=== PATIENT | male | born 1990 | race African-American/Black ===

== ENCOUNTER 2022-10-16 10:27 | Emergency (ER) | payer SELFPAY ==
[~2022-10-16] VITALS: Ht 167.6 cm; Wt 71.7 kg
[2022-10-16 10:50] VITALS: BP 134/70; TEMP 98; O2SAT 100
[2022-10-16] MEDS ORDERED: ALBU8.5H8 INH (11:04)
[2022-10-16] MEDS ORDERED: PANT40TA2 PO (11:04)
[2022-10-16] MEDS ORDERED: PRED50TA PO (11:04)
== END 2022-10-16 11:10 | disposition home or self-care (01) ==
LOC: ER 10:32
DX: J45.909 Unspecified asthma, uncomplicated (principal); K21.9 Gastro-esophageal reflux disease without esophagitis

== ENCOUNTER 2022-10-29 19:11 | Emergency (ER) | payer SELFPAY ==
[~2022-10-29] VITALS: Ht 167.6 cm; Wt 70.3 kg
[~2022-10-29 19:11] MED LIST: ALBU8.5H8 INH; PANT40TA2 PO; PRED50TA PO
[2022-10-29 21:28] VITALS: BP 138/86; TEMP 98.6; O2SAT 0
[2022-10-29] MEDS ORDERED: MAG HYDROX/AL HYDROX/SIMETH 30 ML UDC PO ONE (22:00)
[2022-10-29] MEDS ORDERED: MAG HYDROX/AL HYDROX/SIMETH 30 ML UDC ONE (22:14)
[2022-10-29] MEDS ORDERED: OMEP40CA21 PO (22:53)
== END 2022-10-29 23:09 | disposition home or self-care (01) ==
LOC: ER 19:14
DX: R10.13 Epigastric pain (principal); J45.909 Unspecified asthma, uncomplicated; K21.9 Gastro-esophageal reflux disease without esophagitis; Z79.899 Other long term (current) drug therapy
CPT/HCPCS: 70360-TC